=== PATIENT | female | born 1975 | race Caucasian/White ===

== ENCOUNTER 2018-01-17 09:55 | Emergency (ER) | END 2018-01-17 13:06 | disposition home or self-care (01) ==

== ENCOUNTER 2018-09-05 09:11 | Emergency (ER) | payer SELFPAY ==
[~2018-09-05] VITALS: Ht 157.5 cm; Wt 73.1 kg
[~2018-09-05 09:11] MED LIST: ACET-141 PO; FER325 PO
[2018-09-05 09:15] VITALS: BP 120/58; PULSE 68; RESP 18; Ht 157.5 cm; Wt 73.1 kg
[2018-09-05] MEDS ORDERED: ALBU8.5H8 INH (09:29)
[2018-09-05] MEDS ORDERED: D-ME473S2 PO (09:29)
[2018-09-05] MEDS ORDERED: MED4DP PO (09:29)
[2018-09-05] MEDS ORDERED: BENZ-6 PO (09:29)
--- NOTE | 2018-09-05 10:19 | ERD ---
ER Documentation Chief Complaint Chief Complaint COUGH [id number] speaking full sentences HPI 42-year-old female presenting with cough is dry over the last 3 days. No runny nose no sore throat with no fevers. Taking Mucinex with no alleviation of symptoms. Denies any other medical problems. NKDA. Surgical history denies. Social history denies ROS All systems reviewed and are negative except as per history of present illness. Medications Home Meds Active Scripts Methylprednisolone* (Medrol* DOSE PACK) 4 Mg/Dose-Pack Tab.ds.pk, 4 MG PO . DIRECTED, #1 PACKET Prov:JACKELYN AYALA PA-C 09/05/18 Albuterol Sulfate* (Proair HFA*) 8.5 Gm Hfa.aer.ad, 2 PUFF INH Q4H PRN for WHEEZING AND SOB, #1 INHALER Prov:JACKELYN AYALA PA-C 09/05/18 Dextromethorphan Hb-Promethazine Hcl* (Promethazine DM* Syrup) 473 Ml Syrup, 5 ML PO Q6 PRN for COUGH, #100 ML Prov:JACKELYN AYALA PA-C 09/05/18 Benzonatate* (Tessalon Perle*) 100 Mg Capsule, 100 MG PO Q8H PRN for COUGH, #30 CAP Prov:JACKELYN AYALA PA-C 09/05/18 Acetaminophen* (Acetaminophen*) 500 MG Extra Strength Tablet, 500 MG PO Q4H PRN for PAIN AND OR ELEVATED TEMP, #20 TAB Prov:MARIA DEL ROSARIO HERRING MD 01/17/18 Ferrous Sulfate* (Ferrous Sulfate*) 325 Mg Tabec, 325 MG PO TID, #90 TAB Prov:MARIA DEL ROSARIO HERRING MD 01/17/18 Allergies Allergies: Coded Allergies: No Known Allergy (Unverified , 01/17/18) PMhx/Soc Medical and Surgical Hx: pt denies Medical Hx, pt denies Surgical Hx Hx Alcohol Use: No Hx Substance Use: No Hx Tobacco Use: No Smoking Status: Never smoker FmHx Family History: No diabetes, No coronary disease, No other Physical Exam Vitals Vital Signs Date Temp Pulse Resp B/P (MAP) Pulse Ox O2 O2 Flow FiO2 Time Delivery Rate 09/05/18 97.4 68 18 120/58 99 09:15 (78) Physical Exam GENERAL: The patient is well-appearing, well-nourished, in no acute distress HEENT: Atraumatic. Conjunctivae are pink. Pupils equal, round, and reactive to light. There is no scleral icterus. Tympanic membranes clear bilaterally. Oropharynx clear. NECK: C-spine is soft and supple. There is no meningismus. There is no cervical lymphadenopathy. CHEST: Clear to auscultation bilaterally. There are no rales, wheezes or rhonc hi. HEART: Regular rate and rhythm. No murmurs, clicks, rubs or gallops. Procedures/MDM MDM: 42-year-old female presenting with cough. I have low suspicion for respiratory distress or hypoxia. I have low suspicion for pneumonia. Patient symptoms are likely associated with viral cough and I do not feel antibiotics are indicated. Patient is discharged with strict ER precautions and told to follow-up with primary care within 1 to 2 days for close evaluation. Patient is told symptoms change or worsen to return immediately to the ER. All questions answered at discharge Departure Diagnosis: Primary Impression: Cough Condition: Stable Patient Instructions: Cough, Chronic, Uncertain Cause, (Adult) Referrals: COMMUNITY CLINICS YOU HAVE RECEIVED A MEDICAL SCREENING EXAM AND THE RESULTS INDICATE THAT YOU DO NOT HAVE A CONDITION THAT REQUIRES URGENT TREATMENT IN THE EMERGENCY DEPARTMENT. FURTHER EVALUATION AND TREATMENT OF YOUR CONDITION CAN WAIT UNTIL YOU ARE SEEN IN YOUR DOCTORS OFFICE WITHIN THE NEXT 1-2 DAYS. IT IS YOUR RESPONSIBILITY TO MAKE AN APPOINTMENT FOR FOLOW-UP CARE. IF YOU HAVE A PRIMARY DOCTOR --you should call your primary doctor and schedule an appointment IF YOU DO NOT HAVE A PRIMARY DOCTOR YOU CAN CALL OUR PHYSICIAN REFERRAL HOTLINE AT IF YOU CAN NOT AFFORD TO SEE A PHYSICIAN YOU CAN CHOSE FROM THE FOLLOWING [facility] CL[facility] [address] [facility] [address] [facility]. [facility] [address] [facility] [address] [facility] [address] [facility]. [address] Additional Instructions: FOLLOW UP WITH YOUR PRIMARY CARE PHYSICIAN TOMORROW.Return to this facility if you are not improving as expected. JACKELYN AYALA PA-C Sep 05, 2018 10:19
== END 2018-09-05 09:41 | disposition home or self-care (01) ==
LOC: FTE 09:11
DX: R05 Cough (principal)
CPT/HCPCS: 99283